=== PATIENT | male | born 2000 | race African-American/Black ===

== ENCOUNTER 2021-08-26 21:21 | Emergency (ER) | payer MEDICAID, OTHER ==
[~2021-08-26] VITALS: Ht 185.4 cm; Wt 80.0 kg
[~2021-08-26 21:21] MED LIST: B50 PO; EPIN0.3P3 IM; FAMO-135 PO; P20 PO
[2021-08-26 22:18] VITALS: BP 99/54
[2021-08-26 23:28] LABS: BASOPHILS % 0.7 % (0.0-2.0); EOSINOPHILS % 2.8 % (0.0-5.0); HEMATOCRIT. 36.9 % (42.0-52.0); HEMOGLOBIN. 12.4 g/dL (14.0-18.0); LYMPHOCYTES % 26.7 % (20.0-50.0); MEAN CORPUSCULAR HEMOGLOBIN 30.2 pg (28.0-32.0); MEAN CORPUSCULAR VOLUME 89.8 fL (80.0-94.0); MEAN PLATELET VOLUME 8.1 fl (7.4-10.4); MONOCYTES % 6.8 % (2.0-8.0); PLATELET 247 x1000/uL (130-400); RED BLOOD CELL COUNT 4.11 mill/uL (4.7-6.1); RED CELL DISTRIBUTION WIDTH 12.5 % (11.6-14.6)
[2021-08-26 23:34] LABS: CHLORIDE 109 mEq/L (98-107)
[2021-08-27] MEDS ORDERED: IOHEXOL-300 100 ML BOTTLE ONE (01:39)
== END 2021-08-27 04:03 | disposition home or self-care (01) ==
LOC: ER 21:21
DX: R07.89 Other chest pain (principal); M54.2 Cervicalgia; R51.9 Headache, unspecified; M25.561 Pain in right knee; M40.46 Postural lordosis, lumbar region; V49.49XA Driver injured in collision with other motor vehicles in traffic accident, initial encounter; Y93.89 Activity, other specified; Y92.488 Other paved roadways as the place of occurrence of the external cause
CPT/HCPCS: 36415; 70450; 71046; 71260; 72125; 80053; 83690; 84484; 85025; 93005; 99285; Q9967

== ENCOUNTER 2023-07-25 20:45 | Emergency (ER) | payer MEDICAID, OTHER ==
[~2023-07-25] VITALS: Ht 182.9 cm; Wt 73.5 kg
[2023-07-25 20:51] VITALS: PULSE 67
[2023-07-25 21:00] VITALS: BP 105/60; RESP 16; TEMP 98.3; O2SAT 100
[2023-07-25 21:30] LABS: BASOPHILS % 0.7 % (0.0-2.0); EOSINOPHILS % 3.8 % (0.0-5.0); HEMATOCRIT. 40.6 % (42.0-52.0); HEMOGLOBIN. 13.7 g/dL (14.0-18.0); LYMPHOCYTES % 32.1 % (20.0-50.0); MEAN CORPUSCULAR HEMOGLOBIN 30.8 pg (28.0-32.0); MEAN CORPUSCULAR HGB CONC 33.7 g/dL (31.0-37.0); MEAN CORPUSCULAR VOLUME 91.4 fL (80.0-94.0); MEAN PLATELET VOLUME 7.5 fl (7.4-10.4); MONOCYTES % 7.8 % (2.0-8.0); NEUTROPHILS % 55.6 % (40.0-76.0); PLATELET 300 x1000/uL (130-400); RED BLOOD CELL COUNT 4.44 mill/uL (4.7-6.1); RED CELL DISTRIBUTION WIDTH 12.7 % (11.6-14.6); WHITE BLOOD COUNT 5.4 x1000/uL (4.5-11.0)
[2023-07-25 21:45] LABS: CHLORIDE 108 mEq/L (98-107); POTASSIUM 4.2 mEq/L (3.5-5.1); SODIUM 140 mEq/L (136-145)
[2023-07-25 21:50] LABS: ALANINE AMINOTRANSFERASE 29 IU/L (13-61); ALBUMIN 4.3 g/dL (3.4-5.0); ASPARTATE AMINOTRANSFERASE 22 IU/L (15-37); CALCIUM 9.2 mg/dL (8.5-10.1); CARBON DIOXIDE 30 mEq/L (21-32); CREATININE 1.1 mg/dL (0.6-1.3); GLUCOSE 91 mg/dL (70-105); UREA NITROGEN BLOOD 13 mg/dL (7-21)
[2023-07-25 21:52] LABS: BILIRUBIN TOTAL 0.5 mg/dL (0.1-1.0); PROTEIN TOTAL 7.9 g/dL (6.0-8.3)
== END 2023-07-26 01:52 | disposition home or self-care (01) ==
LOC: ER 20:45
DX: R05.1 Acute cough (principal); K62.5 Hemorrhage of anus and rectum
CPT/HCPCS: 36415; 71045; 80053; 85025; 99284

== ENCOUNTER 2025-06-27 13:34 | Emergency (ER) | payer MEDICAID, OTHER ==
[~2025-06-27] VITALS: Ht 185.4 cm; Wt 77.0 kg
[~2025-06-27 13:34] MED LIST changes: -B50 PO; +DIPH50CA42 PO
[2025-06-27 13:42] VITALS: O2SAT 98
[2025-06-27 15:57] LABS: BASOPHILS % 1.4 % (0.0-2.0); EOSINOPHILS % 3.4 % (0.0-5.0); HEMATOCRIT. 41.2 % (42.0-52.0); HEMOGLOBIN. 13.9 g/dL (14.0-18.0); LYMPHOCYTES % 48.5 % (20.0-50.0); MEAN PLATELET VOLUME 8.3 fl (7.4-10.4); MONOCYTES % 7.3 % (2.0-8.0); NEUTROPHILS % 39.4 % (40.0-76.0); PLATELET 214 x1000/uL (130-400); RED BLOOD CELL COUNT 4.54 mill/uL (4.7-6.1); RED CELL DISTRIBUTION WIDTH 12.0 % (11.6-14.6)
[2025-06-27 16:08] LABS: CREATININE 1.1 mg/dL (0.6-1.3); UREA NITROGEN BLOOD 10 mg/dL (9-23)
[2025-06-27 16:10] LABS: ASPARTATE AMINOTRANSFERASE 21 IU/L (<34); BILIRUBIN TOTAL 0.6 mg/dL (0.1-1.0); PROTEIN TOTAL 7.7 g/dL (6.0-8.3)
[2025-06-27 18:45] VITALS: BP 121/72; PULSE 85; RESP 18; TEMP 36.7; O2SAT 99
[2025-06-27] MEDS ORDERED: IOHEXOL-300 100 ML BOTTLE ONE (23:18)
== END 2025-06-27 19:00 | disposition home or self-care (01) ==
LOC: ER 13:34
DX: K62.5 Hemorrhage of anus and rectum (principal); Z79.52 Long term (current) use of systemic steroids; Z79.899 Other long term (current) drug therapy
CPT/HCPCS: 99285; 74177; 80053; 85025; 36415; Q9967